=== PATIENT | female | born 2000 | race African-American/Black ===

== ENCOUNTER 2024-08-21 17:43 | Emergency (ER) | payer BC ==
[2024-08-21] MEDS ORDERED: morphine SULFATE 4 MG/ML VIAL ONE (18:07)
[2024-08-21] MEDS: SODIUM CHLORIDE 0.9% 500 ML INFUS.BAG IV ONE (18:12)
[2024-08-21 18:13] VITALS: RESP 18; BMI 31.6
[2024-08-21] MEDS ORDERED: ACETAMINOPHEN 500 MG TABLET (FP) ONE (18:31)
[2024-08-21] MEDS: ACETAMINOPHEN 500 MG TABLET (FP) PO ONE (18:32)
[2024-08-21 18:55] LABS: HEMATOCRIT 36.7 % (32.4-45.2); HEMOGLOBIN 12.4 G/dL (10.7-15.3); MCH 31.8 pg (25.7-33.7); MCHC 33.8 g/dl (32.0-36.0); MEAN CELL VOLUME 94.2 fl (80-96); MEAN PLT VOLUME 8.5 fl (7.5-11.1); PLATELET COUNT 247.4 10^3/uL (134-434); RDW 12.5 % (11.6-15.6); WHITE BLOOD COUNT 5.5 10^3/uL (4.0-10.8)
[2024-08-21 19:41] LABS: EPITHELIAL CELLS 0-5 /hpf
[2024-08-21 20:04] LABS: POTASSIUM 3.8 mmol/L (3.5-5.1)
[2024-08-21 20:07] LABS: ALBUMIN 3.7 g/dl (3.4-5.0); BLOOD UREA NITROGEN 11.7 mg/dL (7-18); MAGNESIUM 1.9 mg/dL (1.8-2.4)
[2024-08-21 20:09] VITALS: BP 95/57; PULSE 88; TEMP 99.5
[2024-08-21 20:10] LABS: CREATININE 0.8 mg/dL (0.55-1.3)
[2024-08-21 20:11] LABS: BILIRUBIN,TOTAL 0.9 mg/dL (0.2-1); TOT PROT 7.4 g/dl (6.4-8.2)
[2024-08-21 20:17] LABS: PLATELET ESTIMATE ADEQUATE
[2024-08-21 21:00] LABS: HIV INTERPRETATION NEGATIVE (NEGATIVE)
== END 2024-08-21 21:01 | disposition home or self-care (01) ==
LOC: FER 17:43
DX: R53.1 Weakness (principal); M79.10 Myalgia, unspecified site; R50.9 Fever, unspecified; R53.83 Other fatigue; B34.9 Viral infection, unspecified; Z20.822 Contact with and (suspected) exposure to COVID-19
CPT/HCPCS: 0241U-QW; 36415; 80053; 81003; 81015; 83735; 84702; 85027; 86803; 87086; 87389; 87651; 99283-25